=== PATIENT | female | born 1985 | race Caucasian/White ===

== ENCOUNTER 2020-11-10 11:01 | Outpatient (CLI) | payer MEDICAID, SELFPAY ==
[2020-11-10] VITALS (10 sets, daily range): BP systolic 115–127; BP diastolic 67–76; PULSE 81–106; RESP 17; TEMP 35.9
--- NOTE | 2020-11-10 12:17 | USR_ITS ---
PROCEDURE INFORMATION: Exam: US Biophysical Profile Without Non-Stress Test Exam date and time: 11/10/2020 1:06 PM Age: 35 years old Clinical indication: Other: Decreased movement; TECHNIQUE: Imaging protocol: US biophysical profile without non-stress testing. COMPARISON: US OB >= 14 weeks fetus [id number] 07/12/2020 2:58 PM FINDINGS: BIOPHYSICAL PROFILE: Breathin/2 Gross body movements: 2/2 tone: 2/2 Qualitative amniotic fluid: 2/2 Biophysical Profile Score: 6/8 US/US OB BPP wo NST [id number] IMPRESSION: 1. Biophysical profile score is 6 out of 8. 2. Normal 19.5 cm amniotic fluid index. 3. Breech presentation. 4. heart beat 133 bpm. 5. Anterior placenta.
== END 2020-11-10 14:35 | disposition home or self-care (01) ==
LOC: OPOB 11:01 → OBGYN 11:03
PROVIDERS: PCP Family Medicine; Visit Provider Family Medicine
DX: O36.8190 Decreased fetal movements, unspecified trimester, not applicable or unspecified (principal); Z3A.00 Weeks of gestation of pregnancy not specified
CPT/HCPCS: 59025; 76819; 99211

== ENCOUNTER 2020-12-04 11:28 | Outpatient (CLI) | payer MEDICAID, SELFPAY ==
[2020-12-04 11:42] VITALS: BP 136/84; PULSE 106; TEMP 36.2
[2020-12-04 11:47] VITALS: RESP 18
[2020-12-04 11:49] VITALS: BMI 39.9
== END 2020-12-04 12:11 | disposition home or self-care (01) ==
LOC: OPOB 11:34 → OBGYN 11:35
PROVIDERS: PCP Family Medicine; Visit Provider Family Medicine
DX: O36.8390 Maternal care for abnormalities of the fetal heart rate or rhythm, unspecified trimester, not applicable or unspecified (principal); Z3A.00 Weeks of gestation of pregnancy not specified
CPT/HCPCS: 59025; 99211

== ENCOUNTER 2020-12-05 22:13 | Outpatient (CLI) | payer MEDICAID, SELFPAY ==
[2020-12-05 22:29] VITALS: BP 131/86; PULSE 100
[2020-12-05 23:04] VITALS: BMI 41.1
[2020-12-05 23:11] VITALS: BP 119/63; PULSE 91
[2020-12-05 23:12] VITALS: TEMP 36.4
[2020-12-05 23:15] VITALS: BP 119/63; PULSE 91; RESP 18; TEMP 36.5
== END 2020-12-05 23:20 | disposition home or self-care (01) ==
LOC: OPOB 22:15 → OBGYN 22:17
PROVIDERS: PCP Family Medicine; Visit Provider Family Medicine
DX: O36.8190 Decreased fetal movements, unspecified trimester, not applicable or unspecified (principal); Z3A.00 Weeks of gestation of pregnancy not specified
CPT/HCPCS: 59025; 99211

== ENCOUNTER 2020-12-08 07:55 | Inpatient (IN) | payer MEDICAID, SELFPAY ==
[2020-12-08] VITALS (58 sets, daily range): BP systolic 100–143; BP diastolic 56–84; PULSE 76–117; RESP 17; TEMP 36–36.3; O2SAT 94–97; BMI 41.1
[2020-12-08 08:48] LABS: Nitrazine Paper, PH Positive
[2020-12-08 09:49] LABS: Basophils % 0.4 %; Eosinophils # 0.1 10^3/uL (0.0-0.8); Eosinophils % 1.3 %; Hematocrit 36.7 % (37.0-47.0); Hemoglobin 12.5 g/dL (11.5-15.3); Lymphocytes # 1.5 10^3/uL (0.8-4.8); Lymphocytes % 16.7 %; Mean Corpuscular HGB Conc 34.1 g/dL (30.0-36.0); Mean Corpuscular Hemoglobin 29.6 pg (28.0-34.0); Mean Platelet Volume 11.7 fL (7.4-10.4); Monocytes # 0.4 10^3/uL (0.2-0.9); Monocytes % 4.1 %; Neutrophils # 7.08 10^3/uL (1.8-7.7); Neutrophils % 77.1 %; Nucleated Red Blood Cells % 0 %; Platelet Count 231 10^3/cmm (130-400); Red Blood Count 4.22 10^6/uL (4.1-5.3); Red Cell Distribution Width 13.7 % (12.1-15.1); White Blood Count 9.2 10^3/uL (4.0-10.0)
[2020-12-08] MEDS: lactated ringers 1,000 ML 999 ML IV (11:42)
[2020-12-08] MEDS: oxytocin 30 UNIT/500 ML BAG IV (11:43)
--- NOTE | 2020-12-08 12:45 | ANES.PREANE2 ---
Pre-Anesthetic Assessment Pre-Anesthetic Assessment: Height/Weight: Height 1.83 m Weight 137.438 kg Temp Pulse Resp BP Pulse Ox 96.8 F L 100 17 115/70 96 12/08/20 07:53 12/08/20 13:29 12/08/20 08:39 12/08/20 13:29 12/08/20 13:27 Preop Diagnosis: IUP Proposed Procedure: labor epidural Was Beta Osvaldo taken within 24 hours: N/A Was Clonidine taken within 24 hours: N/A Social: Social History: No alcohol and No tobacco Exam: Pre-Anes Outpt Exam: alert, oriented x 3, clear to auscultation bilaterally and regular rate & rhythm Airway: Submandibular: WNL Cervical ROM: WNL MP: 1 History/ROS: No significant history except as noted Pulmonary: Pulmonary: None reported CV/HEM: CV/HEM: None reported : : None reported Hepatic: Hepatic: None reported GI: GI: None reported Metabolic: Metabolic: None reported Musc/skel: Musc/skel: None reported Neuropsych: Neuropsych: None reported Anesthetic Plan: ASA status: 1 Anesthesia: Anesthesia Evaluation Risk of > 500 ml blood loss (7ml/kg in children): No Meds/Allergies Current Medications: Current Medications Generic Name Dose Route Start Last Admin Trade Name Freq PRN Reason Stop Dose Admin Ropivacaine 200 mg in 100 mls @ 13 mls/hr 12/08/20 08:45 12/08/20 13:00 Naropin Premix EPIDURAL 13 mls/hr .Q7H42M DRE Administration Lactated Ringer's 1,000 mls @ 999 m ls/hr 12/08/20 08:40 12/08/20 11:42 Lactated Ringers IV 999 mls/hr .Q1H1M PRN Administration Per L&D Rescitati on Protocol Oxytocin 30 unit in 500 ml s @ 1 mls/hr 12/08/20 11:15 12/08/20 11:43 Pitocin IV 2 milliunit/min .Q24H DRE 2 mls/hr Administration Protocol 1 MILLIUNIT/MIN PFSH Anesthesia PFSH: Surgical History History of tonsillectomy and adenoidectomy Family History Denies family history of Anesthesia complication Bleeding disorder Social History Smoking and tobacco status: never smoked Female Reproductive History: : 4 Data Anesthesia CBC & Chem 7: 12/08/20 09:00 Other Labs: Laboratory Results - last 48 hr 12/08/20 09:00 WBC 9.2 RBC 4.22 Hgb 12.5 Hct 36.7 L MCV 87.0 MCH 29.6 MCHC 34.1 RDW 13.7 Plt Count 231 MPV 11.7 H Neut % (Auto) 77.1 Lymph % (Auto) 16.7 [place] % (Auto) 4.1 Eos % (Auto) 1.3 Baso % (Auto) 0.4 Neut # (Auto) 7.08 Lymph # (Auto) 1.5 [place] # (Auto) 0.4 Eos # (Auto) 0.1 Baso # (Auto) 0.0 Nucleated RBC % (auto) 0 Nucleated RBCs # 0.0 Cardiac Studies: No Data to Display
--- NOTE | 2020-12-08 13:34 | ANES.PROC ---
Anesthesia Procedures Procedure/Date: 12/08/20 Epidural: Time Out Performed: Yes Consents Signed: Procedure Consent Consent: requested by attending/covering physician Lumbar Level: L3-L4 Epidural position: sitting Epidural procedure: sterile prep of area, 1% lidocaine to numb the area, 18 g needle, negative for paresthesia passed, neg for paresthesia, test dose given, 1.5% xylocaine 1:200k epi (4ml), 0.2% Ropivacaine bolus ml (5), placed PCEA, no systemic response, sterile dressing applied, L.U.D. no apparent complications and 0.2% Ropiavacaine @ mls/hr (13)
[2020-12-08] MEDS: dextrose 5%-lactated ringers 1,000 ML 125 ML IV (14:54)
--- NOTE | 2020-12-08 16:46 | P.PCNOB_ITS ---
Delivery Note: Date of delivery: December 08, 2020 Pre-Delivery Course: The patient had routine care at [facility]. There were no complications during the . Delivery: This is a 35-year-old G3, P2 at 40 weeks 2 days gestation who presented to labor and delivery with spontaneous rupture of membranes. She states that her water broke at approximately 4:45 in the morning with clear fluid. On presentation she was not regularly rach. heart tones were reassuring. There were 2 other sections going on the floor so she was monitored until it was felt to be safe to start her on Pitocin. She then received an epidural for pain management. She had a normal spontaneous vaginal delivery of a viable male infant weight 3780 g, 8 pounds 5 ounces, Apgars 9 and 9 over an intact perineum. The infant was suctioned at delivery and placed on mother's chest. The cord was clamped and cut. Cord blood was obtained. The placenta was delivered grossly intact and normal to inspection. There were no lacerations. Estimated blood loss 150 mL. Mother and were doing well after delivery. A&P Assessment and plan (1) Spontaneous rupture of membranes: Status: Acute (2) Normal spontaneous vaginal delivery: Routine care Status: Acute (3) 40 weeks gestation of : Status: Acute Coding Level of Care Code Acute Inventory Control Assistant for Perfecto Abdi Diagnoses Spontaneous rupture of membranes Normal spontaneous vaginal delivery O80 40 weeks gestation of Z3A.40
[2020-12-08] MEDS: docusate sodium 100 mg Capsule PO (18:41)
[2020-12-08] MEDS: ibuprofen 800 mg tablet PO (20:54)
[2020-12-09 00:34] VITALS: BP 108/63; PULSE 75
[2020-12-09 05:10] LABS: Hematocrit 35.1 % (37.0-47.0); Mean Corpuscular HGB Conc 34.2 g/dL (30.0-36.0); Mean Corpuscular Hemoglobin 29.4 pg (28.0-34.0); Platelet Count 197 10^3/cmm (130-400); Red Blood Count 4.08 10^6/uL (4.1-5.3); Red Cell Distribution Width 13.6 % (12.1-15.1)
[2020-12-09] MEDS: ibuprofen 800 mg tablet PO ×3 (09:41→21:30)
[2020-12-09] MEDS: prenatal vitamin Capsule 1 CAP PO (09:41)
[2020-12-09 11:23] VITALS: BP 123/75; PULSE 75; TEMP 35.8
[2020-12-09 15:09] VITALS: TEMP 35.6
[2020-12-09 15:10] VITALS: BP 130/79; PULSE 87
[2020-12-09 17:39] VITALS: RESP 16
--- NOTE | 2020-12-09 18:24 | P.PN_ITS ---
Subjective Subjective: Interval history: Doing well. Scant vaginal bleeding. Vitals/I&O/Wt Last Vital Signs Temp 96.1 F L 12/09/20 15:09 Pulse 87 12/09/20 15:10 Resp 16 12/09/20 17:39 BP 130/79 12/09/20 15:10 Pulse Ox 96 12/08/20 13:42 Weight last 48 hrs Weight 137.438 kg Physical Exam Const: COMMON NORMALS: no acute distress GENERAL APPEARANCE: cooperative and comfortable HENMT: COMMON NORMALS: normocephalic HEAD & SCALP: normocephalic Eye: COMMON NORMALS: Equal, round and reactive pupils present and EOMs intact bilaterally PUPIL: Yes Equal, round and reactive pupils present Resp: COMMON NORMALS: normal respiratory effort Cardio: COMMON NORMALS: regular rate and regular rhythm RATE: regular rate RHYTHM: regular rhythm Extremity: GENERAL: No calf tenderness and No edema Urinary Catheter Management^: Carter Latex: Cath Placed During This Visit: yes Urinary Catheter Date of Insertion: 12/08/20 Urinary Catheter Time of Insertion: 13:35 Data : 12/09/20 05:05 A&P Assessment and plan (1) Normal spontaneous vaginal delivery: Doing well. Likely discharge home in the morning. Infant is going to be monitored overnight. Status: Acute Attestations Medical Necessity Statement*: Routine care Coding Level of Care Code Acute Pattern Data Operator for Chg Fwd Diagnoses Normal spontaneous vaginal delivery O80
[2020-12-09 21:32] VITALS: BP 111/75; PULSE 76
[2020-12-10 05:00] VITALS: BP 118/81; PULSE 73; RESP 16; O2SAT 97
[2020-12-10] MEDS: prenatal vitamin Capsule 1 CAP PO (08:09)
[2020-12-10] MEDS: docusate sodium 100 mg Capsule PO (08:09)
[2020-12-10] MEDS: ibuprofen 800 mg tablet PO (08:09)
[2020-12-10 12:00] VITALS: BP 125/81; PULSE 80; RESP 14; TEMP 36.6; O2SAT 97
--- NOTE | 2020-12-10 12:47 | PM.DCS ---
Discharge Providers Date of Admission: 12/08/20 07:55 Date of Discharge: December 10, 2020 Attending Provider at Admission: Gaby Stewart MD Attending Provider at Discharge: Gaby Stewart MD Primary Care Provider: Gaby Stewart MD Diagnoses at Discharge Discharge Diagnosis (1) Normal spontaneous vaginal delivery: Status: Acute Reason for Visit Reason for Visit: possible srom Hospital Course Hospital Course This is a 35-year-old G3 now P3 who presented at 40 weeks 2 days gestation in active labor. She had a normal spontaneous vaginal delivery of a viable male infant. Mother and infant did well after delivery. On day #2 she was ambulating, tolerating a regular diet had minimal vaginal bleeding and was requesting discharge home. Physical Exam HENMT: COMMON NORMALS: normocephalic HEAD & SCALP: normocephalic GI: COMMON NORMALS: Soft to palpation, non-tender (Fundus firm U- 2) and no masses PALPATION: Yes Soft to palpation Extremity: COMMON NORMALS: no calf tenderness GENERAL: Yes edema (Slight nonpitting) Urinary Catheter Management^: Carter Latex: Cath Placed During This Visit: yes Urinary Catheter Date of Insertion: 12/08/20 Urinary Catheter Time of Insertion: 13:35 Discharge Data Vitals: Last Vital Signs Temp 96.1 F L 12/09/20 15:09 Pulse 73 12/10/20 05:00 Resp 16 12/10/20 05:00 BP 118/81 12/10/20 05:00 Pulse Ox 97 12/10/20 05:00 Discharge Plan Discharge Patient Disposition: Home Condition: Stable Prescriptions: Continued prenat.vits,avinash,cng-sygr-tycen Tablet 1 tab PO DAILY RF: 0 Discharge Orders: Discharge Order (Routine); Ordered 12/10/20 Ordered By: Gaby Stewart Referrals: Gaby Stewart MD [Primary Care Provider] - 1 month Discharge Diet: Usual diet Discharge Activity: Limit activity as instructed Patient Instructions: Your Baby (GEN), Expression, Collection and Storage of Breastmilk (GEN), How to Hold and Breastfeed Your Baby (GEN), and Nipple Soreness (GEN), and Plugged Ducts (GEN), Vaginal Delivery (DC), Pre-eclampsia and Eclampsia (GEN), OB Discharge Report, OB Food/Drug Interaction Guide, Opioid Safety, Abnormal Bleeding, Depression Discharge Attestations Time Spent in Discharge Care*: less than 30 min Quality Metrics Clinical Quality Measures During this hospital stay, did patient experience: None Coding Level of Care Code Acute Chg FW DC note Diagnoses Normal spontaneous vaginal delivery O80
[2020-12-10 14:20] VITALS: BP 116/80; PULSE 85; RESP 17; TEMP 36.7; O2SAT 96
[2020-12-10 15:00] VITALS: BP 116/80; PULSE 85; RESP 17; TEMP 36.7; O2SAT 96
== END 2020-12-10 14:45 | disposition home or self-care (01) | DRG 807 ==
LOC: OPOB 07:58 → OBGYN 07:58
PROVIDERS: Admitting Provider Family Medicine; PCP Family Medicine; Visit Provider Family Medicine
DX: O48.0 Post-term pregnancy (principal); Z37.0 Single live birth; Z3A.40 40 weeks gestation of pregnancy
CPT/HCPCS: 36415; 51702; 59025; 59409; 83986; 85025; 85027; 99211; J2795